=== PATIENT | male | born 1970 | race Caucasian/White ===

== ENCOUNTER 2018-08-30 09:06 | Day surgery (SDC) | payer OTHER, MEDICARE ==
[~2018-08-30] VITALS: Ht 188 cm; Wt 89.1 kg
[~2018-08-30 09:06] MED LIST: ADIPEX-P37.5 MG PO; ASPIRIN E.C. 8181 MG PO; AVINZA30 M1 PO; BENADRYL50 MG PO; BUPROPION HCL100 MG PO; DEPAKOTE DR500 MG PO; DILAUDID 4MG TAB4 MG PO; DOLOPHINE PO; ESCITALOPRAM; FENTANYL 100MCG TD; FENTANYL 25 MCG TOP; FUROSEMIDE; LEXAPRO PO; LIPITOR 80MG80 MG PO; LOPRESSOR 550 MG/TAB PO; METHADONE H10 MG/TAB PO; MILLIPRED DP5 MG PO; MORPHINE 1515 MG/TAB PO; NITROSTAT0.4 MG/TAB SL; NORCO 325 MG-101 TAB PO; NUCENTA; NUCYNTA50 MG PO; OXYCODONE HCL10 MG PO; OXYCONTIN10 MG PO; OXYCONTIN40 MG PO; PHENERGAN 25 TA25 MG PO; PLAVIX 75MG TAB75 MG PO; PRILOSEC 20MG20 MG PO; SIMVASTATIN10 MG PO; SINGULAIR 110 MG/TAB PO; WELLBUTRIN 100100 MG PO; WELLBUTRIN XL300 M1 PO; ZANTAC 150MG T150 MG PO
[2018-08-30] MEDS ORDERED: LOPRESSOR 550 MG/TAB PO (09:22)
[2018-08-30 09:26] VITALS: BP 135/85; PULSE 52; TEMP 98.3
--- NOTE | 2018-08-30 11:05 | NUR ---
TO [facility] PER CART FROM ENDOSCOPY. AMBULATED TO RECLINER WITH ASSIST AND TOLERATED WELL. ALERT ORIENTED X3, TALKING TO STAFF. RECEIVED MUFFIN AND COFFEE.
[2018-08-30 11:10] VITALS: BP 103/82; PULSE 48; TEMP 97.6
[2018-08-30 11:20] VITALS: BP 119/80; PULSE 43
--- NOTE | 2018-08-30 11:20 | NUR ---
ATE 1/2 MUFFIN AND COFFEE. TALKED TO PATIENT ABOUT LOW HEART RATE AND THAT HE MAY NEED TO TALK WITH FAMILY PHYSICIAN.
--- NOTE | 2018-08-30 11:25 | NUR ---
PATIENT DARSHANA AT BEDSIDE. DR PINZON INTO TALK WITH PATIENT AND HIS .
--- NOTE | 2018-08-30 11:30 | NUR ---
RECEIVED DISCHARGE INSTRUCTIONS AND VERBALIZED UNDERSTANDING. DISCONTINUED IV AND INT CALLED SON FOR RIDE HOME. DARSHANA HAD TO GO BACK TO WORK, PATIENT GETTING DRESSED.
--- NOTE | 2018-08-30 11:50 | NUR ---
DISCHARGED PER WC BY NURSING STAFF TO PRIVATE CAR IN CARE OF SON.
== END 2018-08-30 12:00 | disposition home or self-care (01) ==
LOC: SDCO 09:06
DX: Z12.11 Encounter for screening for malignant neoplasm of colon (principal); D12.2 Benign neoplasm of ascending colon; D12.3 Benign neoplasm of transverse colon; D12.4 Benign neoplasm of descending colon; K64.0 First degree hemorrhoids; Z80.0 Family history of malignant neoplasm of digestive organs; I25.10 Atherosclerotic heart disease of native coronary artery without angina pectoris; K21.9 Gastro-esophageal reflux disease without esophagitis; E78.00 Pure hypercholesterolemia, unspecified; I10 Essential (primary) hypertension; E66.9 Obesity, unspecified; Z79.02 Long term (current) use of antithrombotics/antiplatelets; Z95.5 Presence of coronary angioplasty implant and graft; Z79.82 Long term (current) use of aspirin; Z87.891 Personal history of nicotine dependence
CPT/HCPCS: J2704

== ENCOUNTER → 2020-02-07 | Outpatient (CLI) | payer OTHER, MEDICARE | LOC: BHSO 10:18 | DX: F41.1 Generalized anxiety disorder (principal) ==

== ENCOUNTER → 2020-02-14 | Outpatient (CLI) | payer OTHER, MEDICARE | LOC: BHSO 09:59 | DX: F33.1 Major depressive disorder, recurrent, moderate (principal) ==

== ENCOUNTER → 2020-02-28 | Outpatient (CLI) | payer OTHER, MEDICARE | LOC: BHSO 13:53 | DX: F33.1 Major depressive disorder, recurrent, moderate (principal) ==

== ENCOUNTER → 2020-03-13 | Outpatient (CLI) | payer OTHER, MEDICARE | LOC: BHSO 09:53 | DX: F31.81 Bipolar II disorder (principal) ==

== ENCOUNTER → 2020-03-18 | Outpatient (CLI) | payer OTHER, MEDICARE | LOC: BHSO 11:10 | DX: F31.81 Bipolar II disorder (principal) ==

== ENCOUNTER → 2020-03-20 | Outpatient (CLI) | payer OTHER, MEDICARE | LOC: BHSO 12:57 | DX: F31.81 Bipolar II disorder (principal) ==

== ENCOUNTER → 2020-03-27 | Outpatient (CLI) | payer OTHER, MEDICARE | LOC: BHSO 13:02 | DX: F31.81 Bipolar II disorder (principal) ==

== ENCOUNTER → 2020-03-29 | Outpatient (CLI) | payer OTHER, MEDICARE ==
[~2020-03-29] MED LIST changes: +MOBIC15 MG PO; +NEURONTIN300 MG/CAP PO; +PROZAC40 MG PO
== END ==
LOC: COL.LAB 06:59
DX: Z20.828 Contact with and (suspected) exposure to other viral communicable diseases (principal)

== ENCOUNTER 2020-04-02 08:17 | Day surgery (SDC) | payer OTHER, MEDICARE ==
[~2020-04-02] VITALS: Ht 188 cm; Wt 85.0 kg
[~2020-04-02 08:17] MED LIST changes: -MOBIC15 MG PO; -NEURONTIN300 MG/CAP PO; -PROZAC40 MG PO
[2020-04-02 08:42] VITALS: BP 143/84; PULSE 48; TEMP 97.7
[2020-04-02] MEDS ORDERED: ASPIRIN E.C. 8181 MG PO (08:49)
[2020-04-02] MEDS ORDERED: LIPITOR 80MG80 MG PO (08:50)
[2020-04-02] MEDS ORDERED: PLAVIX 75MG TAB75 MG PO (08:50)
[2020-04-02] MEDS ORDERED: PROZAC40 MG PO (08:52)
[2020-04-02] MEDS ORDERED: PRILOSEC 20MG20 MG PO (08:52)
[2020-04-02] MEDS ORDERED: NEURONTIN300 MG/CAP PO (08:53)
[2020-04-02] MEDS ORDERED: MOBIC15 MG PO (08:53)
--- NOTE | 2020-04-02 08:55 | NUR ---
TO [facility] AT 0823- CALL LIGHT IN REACH
[2020-04-02 10:15] VITALS: BP 145/89; PULSE 49; TEMP 97.3
--- NOTE | 2020-04-02 10:17 | NUR ---
SAO2 STABLE. PATIENT ALERT AND TALKING WITH STAFF. PATIENT GIVEN APPLE JUICE AND COFFEE.
[2020-04-02 10:30] VITALS: BP 147/94; PULSE 48
--- NOTE | 2020-04-02 10:30 | NUR ---
VSS ON ROOM AIR. PATIENT TOLERATES JUICE AND COFFEE WITHOUT PROBLEMS. AT BEDSIDE. 1035 PATIENT GIVEN VANILLA PUDDING AND MUFFIN. COTINUES TO DENY DISCOMFORT AND NAUSEA.
[2020-04-02 10:45] VITALS: BP 113/77; PULSE 41
--- NOTE | 2020-04-02 10:45 | NUR ---
VSS. PATIENT TOLERATES PUDDING AND MUFFIN WITHOUT PROBLEMS. 1055 IV SITE TO RIGHT HAND DC'D INTACT, PRESSURE AND BANDAGE APPLIED. PATIENT ALERT AND TALKING.
[2020-04-02 11:00] VITALS: BP 105/76; PULSE 50
--- NOTE | 2020-04-02 11:05 | NUR ---
VSS. PATIENT GIVEN DISCHARGE INSTRUCTIONS VERBALLY AND WRITTEN IN DISCHARGE PACKET. QUESTIONS ANSWERED AND PATIENT VOICED UNDERSTANDING. 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 PATIENT AMBULATES WITH STEADY GAIT.
== END 2020-04-02 11:05 | disposition home or self-care (01) ==
LOC: SDCO 08:17
DX: D12.8 Benign neoplasm of rectum (principal); K64.0 First degree hemorrhoids; K21.0 Gastro-esophageal reflux disease with esophagitis; K44.9 Diaphragmatic hernia without obstruction or gangrene; K29.30 Chronic superficial gastritis without bleeding; R63.4 Abnormal weight loss; I10 Essential (primary) hypertension; I25.10 Atherosclerotic heart disease of native coronary artery without angina pectoris; E78.5 Hyperlipidemia, unspecified; G89.29 Other chronic pain; F41.9 Anxiety disorder, unspecified; F32.9 Major depressive disorder, single episode, unspecified; M54.10 Radiculopathy, site unspecified; Z98.84 Bariatric surgery status; Z79.02 Long term (current) use of antithrombotics/antiplatelets; Z91.041 Radiographic dye allergy status; Z87.891 Personal history of nicotine dependence; Z98.1 Arthrodesis status; Z86.14 Personal history of Methicillin resistant Staphylococcus aureus infection; Z79.899 Other long term (current) drug therapy; Z95.5 Presence of coronary angioplasty implant and graft
CPT/HCPCS: J2250; J2704; J7030

== ENCOUNTER → 2020-04-04 | Outpatient (CLI) | payer OTHER, MEDICARE ==
[~2020-04-04] MED LIST changes: +MOBIC15 MG PO; +NEURONTIN300 MG/CAP PO; +PROZAC40 MG PO
== END ==
LOC: BHSO 15:09
DX: F31.81 Bipolar II disorder (principal)

== ENCOUNTER → 2020-04-11 | Outpatient (CLI) | payer OTHER, MEDICARE | LOC: BHSO 12:52 | DX: F31.81 Bipolar II disorder (principal) ==

== ENCOUNTER 2020-04-16 12:37 | Day surgery (SDC) | payer OTHER, MEDICARE ==
[2020-04-16] VITALS (11 sets, daily range): BP systolic 100–120; BP diastolic 57–71; PULSE 40–57; TEMP 98.4
[~2020-04-16] VITALS: Ht 188.1 cm; Wt 83.9 kg
[~2020-04-16 12:37] MED LIST changes: +PROTONIX 40MG T40 MG PO; +TOPROL XL100 MG PO
[2020-04-16 13:21] LABS: HEMATOCRIT 39.5 % (42.0-52.0); HEMOGLOBIN 12.9 g/dl (13.5-18.0); MEAN CELL VOLUME 91 fl (80.0-100.0); MEAN CORPUSCULAR HEMOGLOBIN 30 pg (27.0-31.0); MEAN CORPUSCULAR HGB CONC 33 g/dl (33.0-37.0); MEAN PLATELET VOLUME 9.5 fl (7.4-10.4); PLATELET COUNT 257 K/mm3 (130-400); RED BLOOD COUNT 4.33 M/mm3 (4.20-5.60); REDCELL DISTRIBUTION WIDTH-CV 13.1 % (11.5-14.5)
[2020-04-16 13:30] LABS: CALCIUM 9.4 mg/dL (8.4-10.2); CREATININE, serum 0.83 (0.66-1.25); POTASSIUM 3.9 mmol/L (3.4-5.0)
[2020-04-16 13:42] LABS: INR 1.1 (0.8-3.0); PROTHROMBIN TIME 12.3 SECONDS (9.7-12.8)
--- NOTE | 2020-04-16 14:17 | NUR ---
SEE MERGE DOCUMENTATION FOR MEDICATION ADMINISTRATION TIMES AND INTRA/POST PROCEDURE SEDATION ASSESSMENTS. RIGHT HAND BARBEAU TEST POSITIVE.
--- NOTE | 2020-04-16 18:40 | NUR ---
Discussed discharge instructions and patient dressed self without incident.
== END 2020-04-16 19:18 | disposition home or self-care (01) ==
LOC: COL.CAR
PROVIDERS: Internal Medicine Interventional Cardiology
DX: I25.10 Atherosclerotic heart disease of native coronary artery without angina pectoris (principal); I10 Essential (primary) hypertension; Z79.82 Long term (current) use of aspirin; Z91.041 Radiographic dye allergy status
CPT/HCPCS: J1200; J1644; J2250; J3010; J7512; Q9967

== ENCOUNTER → 2020-04-18 | Outpatient (CLI) | payer OTHER, MEDICARE | LOC: BHSO 13:56 | DX: F31.81 Bipolar II disorder (principal) ==

== ENCOUNTER → 2020-04-26 | Outpatient (CLI) | payer OTHER, MEDICARE | LOC: COL.RAD 11:02 | DX: K82.8 Other specified diseases of gallbladder (principal); Z98.84 Bariatric surgery status; Z98.1 Arthrodesis status; Z98.890 Other specified postprocedural states ==

== ENCOUNTER 2023-06-02 11:14 | Day surgery (SDC) | payer MEDICARE, MEDICAID ==
[~2023-06-02] VITALS: Ht 190.5 cm; Wt 116.0 kg
[2023-06-02] VITALS (10 sets, daily range): BP systolic 134–179; BP diastolic 73–102; PULSE 67–96; TEMP 98.1–98.3
[~2023-06-02 11:14] MED LIST changes: -FENTANYL 100MCG TD; +FENTANYL 25 MCG TD
--- NOTE | 2023-06-02 16:24 | NUR ---
PT ARRIVED TO ROOM 322. PT IS A&OX4 AMBULATING WELL INDEPENDENTLY. PT CURRENTLY HAS LR INFUSING, STARTED IN THE ER, BAG NOT YET COMPLETED. PT ADMITTED FOR PRIAPISM X48HRS NOW. NO COMPLAINT OF PAIN ON ASSESSMENT. PT REMAINS NPO UNTIL PROCEDURE THIS EVENING.
--- NOTE | 2023-06-02 17:45 | NUR ---
PT TAKEN DOWN FOR PROCEDURE AT THIS TIME.
--- NOTE | 2023-06-02 22:37 | NUR ---
Patient arrived to surgical unit from PACU at approximately 2110. Able to void without difficulty. Reports level 5 pain to groin. Given scheduled APAP, Dilaudid, and changed Fentanyl patch. Old patch taken off and wasted with another RN. New patch placed to right upper back. Patient voices no questions, needs, or concerns at this time. In bed with call light within reach. No erection at this time. Scant amount of dried blood to penis from procedure. No active bleeding noted.
[2023-06-03] VITALS (13 sets, daily range): BP systolic 116–139; BP diastolic 63–84; PULSE 63–85; TEMP 98–98.5
--- NOTE | 2023-06-03 00:11 | NUR ---
Patient called at approximately 2330, reported that he was starting to have swelling to penis/an erection. Call placed to Dr. Rojas. New order for Sudafed 30 mg po now, ice to area, and asked if we still have Phenylephrine, which we had 1 injection left on the chart. MD spoke with ER physician, Dr. Kwon, who agreed to come up and inject Phenylephrine into penis, and did so at 2350. Given PRN Roxicodone and Morphine for pain. Ice placed to penis after injection, and given Sudafed.
--- NOTE | 2023-06-03 05:42 | NUR ---
Rechecked penis for swelling/erection around 0020, decreased erection at that time. Told to call if swelling/erection returns. Patient sleeping when checked on around 0100. Went to give scheduled Acetaminophen around 0300 and looked at penis at that time. Swelling back with erection. Complaining of level 10 pain. Patient did not call prior to this regarding swelling or erection. Asked how it had compared to when he first came into the hopital, and reported that the erection was the same, just now bruised. Given PRN Roxicodone and Morphine. Called Dr. Rojas and updated at 0324. New order to make NPO and planning on surgery at 0600. Patient updated. program supervisor updated. Consents obtained. IV came out and new one started, 22 to E. PCT assisted with removing jewlry, had patient void, and VS obtained after 0500. Preop checklist completed. Report given to OR, and they took patient down to OR at this time.
--- NOTE | 2023-06-03 08:46 | NUR ---
Pt just arrived to the floor from Pacu. He is alert and oriented, some pain complaints 5/10 at this time. States always has back pain. Small incision on the right side of his penis. There is a small amount of bloody drainage noted. Gauze loosly placed on penis to catch drainage. Call light within reach, will continue to monitor
--- NOTE | 2023-06-03 10:07 | NUR ---
Pt doing okay, continues to rate pain 5/10. Penis is bruised, still flacid, no increase in drainage noted. I did give him some ice water with medications. No other needs or questions at this time
--- NOTE | 2023-06-03 11:57 | NUR ---
Initial visit: Keyseater Operator stopped by room on rounds. Pt was resting and content. Pt has no needs right now. Keyseater Operator will follow up as needed.
--- NOTE | 2023-06-03 13:17 | NUR ---
Notified RT that pt does not have IS in the room. RT did bring one in. I did educate pt on how to use the IS and instructions for how often. Pt having complaints of pain on his penis. Scheduled pain medication given
--- NOTE | 2023-06-03 14:57 | NUR ---
GABRIELE Student identified self as SW Student and completed Care Management assessment with patient at bedside. Patient stated that he lives in [place] with his son. Patient reported that his PCP is Dr. Light at [facility]. His preferred pharmacy for discharge medication is [facility] in [place]. Patient reported that before hospitalization he was independent with ADLs and IADLs with no use of oxygen or CPAP. Patient is covered by Medicare and [place] Medicaid. Patient reported that he does not have a DPOA-HC currently and at this time would not like to complete one. Discharge Plan: Home
--- NOTE | 2023-06-03 15:32 | NUR ---
Pt has continued to do well with no changes. PRN pain medication is working to keep pain at tolerable level. Pt has had no other issues or complaints. He has been up and did void without difficulty
--- NOTE | 2023-06-03 17:59 | NUR ---
Reviewed discharge instructions with pt. All questions answered, INT removed from left upper arm. Pt escorted out via wheelchair
== END 2023-06-03 18:00 | disposition home or self-care (01) ==
LOC: COL.ER 11:14 → SDCO 14:17 → SURG 14:17 → SDCO 14:29 → SURG 15:55 → SDCO 06-03 18:00
DX: N48.30 Priapism, unspecified (principal); Z87.891 Personal history of nicotine dependence; Z79.02 Long term (current) use of antithrombotics/antiplatelets; Z95.5 Presence of coronary angioplasty implant and graft
CPT/HCPCS: OP; A4314; A9284; J0360; J0665; J0690; J1100; J1170; J1920; J2270; J2371; J2405; J2704; J3010; J7120

== ENCOUNTER 2023-06-05 23:20 | Emergency (ER) | payer MEDICARE, MEDICAID ==
[~2023-06-05] VITALS: Ht 190.5 cm; Wt 115.9 kg
[2023-06-05 23:21] VITALS: TEMP 98.2
[2023-06-06 00:05] LABS: TRICYCLIC ANTIDEPRESS URINE NEGATIVE
[2023-06-06 00:16] LABS: HEMATOCRIT 46.9 % (42.0-52.0); HEMOGLOBIN 15.4 g/dl (13.5-18.0); MEAN CELL VOLUME 95 fl (80.0-100.0); MEAN CORPUSCULAR HEMOGLOBIN 31 pg (27-31); MEAN CORPUSCULAR HGB CONC 33 g/dl (33.0-37.0); MEAN PLATELET VOLUME 9.1 fl (7.4-10.4); PLATELET COUNT 265 K/mm3 (130-400); RED BLOOD COUNT 4.92 M/mm3 (4.20-5.60); REDCELL DISTRIBUTION WIDTH-CV 14.4 % (11.5-14.5)
[2023-06-06 00:31] LABS: ALBUMIN 3.9 gm/dL (3.5-5.0); BILIRUBIN,TOTAL 0.3 mg/dL (0.2-1.2); CALCIUM 8.7 mg/dL (8.4-10.2); CREATININE, serum 0.84 mg/dL (0.72-1.25); POTASSIUM 4.2 mmol/L (3.5-4.5); TOTAL PROTEIN 7.2 gm/dL (6.2-8.1)
[2023-06-06 01:00] LABS: BAND 4 % (0-10); EOSINOPHIL 1 % (0-4); HYPOCHROMIA 1+; LYMPHOCYTE 17 % (20.0-51.0); NEUTROPHILS 70 % (42.0-75.2); PLATELET ESTIMATE NORMAL (NORMAL)
[2023-06-06 04:45] VITALS: BP 175/105; PULSE 71
== END 2023-06-06 04:45 | disposition home or self-care (01) ==
LOC: COL.ER 23:20
PROVIDERS: Emergency Medicine
DX: S02.2XXA Fracture of nasal bones, initial encounter for closed fracture (principal); F10.129 Alcohol abuse with intoxication, unspecified; I25.10 Atherosclerotic heart disease of native coronary artery without angina pectoris; I10 Essential (primary) hypertension; Y90.6 Blood alcohol level of 120-199 mg/100 ml; Z79.02 Long term (current) use of antithrombotics/antiplatelets; Z95.5 Presence of coronary angioplasty implant and graft; V89.2XXA Person injured in unspecified motor-vehicle accident, traffic, initial encounter
CPT/HCPCS: J0690; J2270; J2405

== ENCOUNTER 2023-09-04 12:38 | Emergency (ER) | payer MEDICARE, MEDICAID ==
[~2023-09-04] VITALS: Ht 190.5 cm; Wt 113.6 kg
[2023-09-04 12:45] VITALS: TEMP 97.5
[2023-09-04] MEDS ORDERED: LORazepam 2 MG/ML 1 ML VIAL IV ONE ×2 (13:00→15:00)
[2023-09-04] MEDS ORDERED: NS 1,000 ML IV ONE (13:00)
[2023-09-04 13:10] LABS: BASO % 0.5 % (0.0-2.0); EOS # 0.2 K/mm3 (0.0-0.7); EOS % 2.3 % (0.0-4.0); GRAN # 6.2 K/mm3 (1.4-6.5); GRAN % 71.6 % (42.2-75.2); HEMATOCRIT 41.6 % (42.0-52.0); LYMPH # 1.6 K/mm3 (1.2-3.4); MEAN CELL VOLUME 92 fl (80.0-100.0); MEAN CORPUSCULAR HEMOGLOBIN 31 pg (27-31); MEAN CORPUSCULAR HGB CONC 34 g/dl (33.0-37.0); MEAN PLATELET VOLUME 9.1 fl (7.4-10.4); MONO # 0.6 K/mm3 (0.1-0.6); MONO % 6.8 % (1.7-9.3); PLATELET COUNT 264 K/mm3 (130-400); RED BLOOD COUNT 4.51 M/mm3 (4.20-5.60); REDCELL DISTRIBUTION WIDTH-CV 12.3 % (11.5-14.5)
[2023-09-04 13:16] LABS: PROTHROMBIN TIME 10.9 SECONDS (9.7-12.8)
[2023-09-04 13:25] LABS: ALANINE AMINOTRANSFERASE 40 U/L (0-55); ALBUMIN 3.7 gm/dL (3.5-5.0); ALKALINE PHOSPHATASE 112 U/L (40-150); ANION GAP 9 mmol/L (7-16); AST,SGOT 20 U/L (5-34); BILIRUBIN,TOTAL 0.3 mg/dL (0.2-1.2); BLOOD UREA NITROGEN 15 mg/dL (8-26); CALCIUM 9.3 mg/dL (8.4-10.2); CARBON DIOXIDE 20 mmol/L (22-29); CHLORIDE 111 mmol/L (98-107); CREATINE KINASE 67 U/L (30-200); CREATININE, serum 0.87 mg/dL (0.72-1.25); GLUCOSE 117 mg/dL (70-99); LIPASE 26 U/L (8-78); POTASSIUM 3.8 mmol/L (3.5-4.5); SODIUM 140 mmol/L (136-145); TOTAL PROTEIN 6.9 gm/dL (6.2-8.1)
[2023-09-04 13:31] LABS: TROPONIN-I < 0.010 ng/mL (0.00-0.033)
[2023-09-04] MEDS ORDERED: LORazepam 0.5 MG TAB PO ONE (14:45)
[2023-09-04] MEDS ORDERED: Home LORazepam 0.5 MG #3 TAB/PACK PO ONE (15:00)
[2023-09-04] MEDS ORDERED: SEROQUEL 1100 MG/TAB PO (15:48)
[2023-09-04 15:51] VITALS: BP 172/111; PULSE 76
[2023-09-05] MEDS ORDERED: CATAPRES0.2 MG PO (13:46)
[2023-09-05] MEDS ORDERED: ATIVAN 1MG T1 MG/TAB PO (13:46)
== END 2023-09-04 15:51 | disposition home or self-care (01) ==
LOC: COL.ER 12:38
PROVIDERS: Emergency Medicine
DX: F11.23 Opioid dependence with withdrawal (principal); F41.9 Anxiety disorder, unspecified; G89.29 Other chronic pain; M54.9 Dorsalgia, unspecified; R79.81 Abnormal blood-gas level; Z79.899 Other long term (current) drug therapy; Z87.891 Personal history of nicotine dependence
CPT/HCPCS: J2060; J7030

== ENCOUNTER 2023-09-05 11:09 | Emergency (ER) | payer MEDICARE, MEDICAID ==
[~2023-09-05] VITALS: Ht 193 cm; Wt 113.6 kg
[~2023-09-05 11:09] MED LIST changes: +SEROQUEL 1100 MG/TAB PO
[2023-09-05 11:15] VITALS: TEMP 97.1
[2023-09-05 12:10] LABS: COLLECTION METHOD CLEAN CATCH
[2023-09-05 12:14] LABS: BASO # 0.1 K/mm3 (0.0-0.2); BASO % 0.6 % (0.0-2.0); EOS # 0.1 K/mm3 (0.0-0.7); EOS % 1.3 % (0.0-4.0); GRAN % 74.9 % (42.2-75.2); HEMATOCRIT 44.6 % (42.0-52.0); HEMOGLOBIN 15.2 g/dl (13.5-18.0); LYMPH # 1.7 K/mm3 (1.2-3.4); LYMPH % 15.9 % (20.0-51.0); MEAN CELL VOLUME 92 fl (80.0-100.0); MEAN CORPUSCULAR HEMOGLOBIN 31 pg (27-31); MEAN CORPUSCULAR HGB CONC 34 g/dl (33.0-37.0); MEAN PLATELET VOLUME 9.4 fl (7.4-10.4); MONO # 0.7 K/mm3 (0.1-0.6); MONO % 6.2 % (1.7-9.3); PLATELET COUNT 291 K/mm3 (130-400); RED BLOOD COUNT 4.86 M/mm3 (4.20-5.60); REDCELL DISTRIBUTION WIDTH-CV 12.3 % (11.5-14.5)
[2023-09-05 12:29] LABS: URINE APPEARANCE Clear (CLEAR/HAZY); URINE COLOR Yellow (YELLOW)
[2023-09-05 12:30] LABS: PH 7.5 (5.0-8.5); SQUAMOUS EPITHELIAL 0-2 /hpf (0-10); URINE BLOOD TRACE-INTACT (NEGATIVE); URINE GLUCOSE Negative (NEGATIVE); URINE KETONE Negative (NEGATIVE); URINE NITRATE Negative (NEGATIVE); URINE PROTEIN(semi-quant) Negative (NEGATIVE); URINE RBC 0-2 /hpf (0-2); URINE UROBILINOGEN 0.2 E.U/dL (0.2-1.0)
[2023-09-05 12:34] LABS: ALBUMIN 4.3 gm/dL (3.5-5.0); BILIRUBIN,TOTAL 0.4 mg/dL (0.2-1.2); CALCIUM 10.1 mg/dL (8.4-10.2); CREATININE, serum 0.85 mg/dL (0.72-1.25); POTASSIUM 3.9 mmol/L (3.5-4.5); TOTAL PROTEIN 7.7 gm/dL (6.2-8.1)
[2023-09-05 12:37] LABS: TRICYCLIC ANTIDEPRESS URINE NEGATIVE (NEGATIVE)
[2023-09-05] MEDS ORDERED: ATIVAN 1MG T1 MG/TAB PO (13:46)
[2023-09-05] MEDS ORDERED: CATAPRES0.2 MG PO (13:46)
[2023-09-05 14:01] VITALS: BP 134/102; PULSE 85
== END 2023-09-05 14:07 | disposition home or self-care (01) ==
LOC: COL.ER 11:09
PROVIDERS: Physician Assistant
DX: I10 Essential (primary) hypertension (principal); F11.23 Opioid dependence with withdrawal; Z95.5 Presence of coronary angioplasty implant and graft; Z87.891 Personal history of nicotine dependence
CPT/HCPCS: J2060; J7030